=== PATIENT | female | born 2000 | race Caucasian/White ===

== ENCOUNTER 2022-07-21 05:32 | Outpatient (CLI) | payer OTHER ==
[~2022-07-21] VITALS: Ht 162.6 cm; Wt 58.2 kg
[2022-07-21] MEDS ORDERED: CITA10TA12 PO (16:55)
[2022-07-21] MEDS ORDERED: [UNRECOGNIZED DRUG - CODE] PO (16:55)
== END 2022-07-21 17:16 | disposition home or self-care (01) ==
LOC: PREOP 05:32
PROVIDERS: ATTEND Surgery
DX: Z01.818 Encounter for other preprocedural examination (principal)

== ENCOUNTER 2022-07-28 07:52 | Day surgery (SDC) | payer OTHER, MEDICAID ==
[2022-07-28] VITALS (12 sets, daily range): BP systolic 97–132; BP diastolic 53–76
[~2022-07-28] VITALS: Ht 162.6 cm; Wt 58.2 kg
[~2022-07-28 07:52] MED LIST: CITA10TA12 PO; [UNRECOGNIZED DRUG - CODE] PO
[2022-07-28] MEDS ORDERED: ceFAZolin INJECTION 2,000 MG in NS (IVPB) 50 ML IV ONE (08:15)
[2022-07-28] MEDS: LACTATED RINGERS 1,000 ML IV PRN ×2 (08:23→09:51)
[2022-07-28] MEDS ORDERED: BUP/EPI 0.5% 1:200,000 (SENSORCAINE) 30 ML VIAL ONE (08:37)
[2022-07-28] MEDS ORDERED: LIDOCAINE PF 2% 5 ML (XYLOCAINE) VIAL ONE (08:57)
[2022-07-28] MEDS ORDERED: GLYCOPYRROLATE 0.2 MG/ML (ROBINUL) 2 ML VIAL ONE (08:57)
[2022-07-28] MEDS ORDERED: ONDANSETRON 4 MG/2 ML (SDV) Z0FRAN ONE (08:57)
[2022-07-28] MEDS ORDERED: proPOfol 200 MG/20 ML (DIPRIVAN) VIAL IV ONE (08:57)
[2022-07-28] MEDS ORDERED: ROCURONIUM 50 MG/5 ML (ZEMURON) VIAL IV ONE (08:58)
[2022-07-28] MEDS ORDERED: SUCCINYLCHOLINE INJ 20 MG/1 ML 10 ML VIAL ONE (08:58)
[2022-07-28] MEDS ORDERED: MIDAZOLAM 2 MG/2 ML (VERSED) VIAL ONE (08:58)
[2022-07-28] MEDS ORDERED: fentaNYL INJ 100 MCG/2 ML AMP ONE (08:58)
[2022-07-28] MEDS ORDERED: BUP/EPI 0.5% 1:200,000 (SENSORCAINE) 30 ML VIAL INJ ONE (09:50)
--- NOTE | 2022-07-28 10:28 | Anesthesia-General Post-Op ---
General Patient Condition Mental Status/LOC: Same as Preop Cardiovascular: Satisfactory Nausea/Vomiting: Absent Respiratory: Satisfactory Pain: Controlled Complications: Absent Post Op Complications Complications None Follow Up Care/Instructions Patient Instructions None needed. Anesthesia/Patient Condition Patient Condition Patient is doing well, no complaints, stable vital signs, no apparent adverse anesthesia problems. No complications reported per nursing. PURNIMA VELARDE CRNA July 28, 2022 10:28
[2022-07-28] MEDS ORDERED: ONDANSETRON 4 MG/2 ML (SDV) Z0FRAN IVP PRN (10:30)
[2022-07-28] MEDS ORDERED: morphine INJ 10 MG/ML 1ML (SYR OR VIAL) IVP ONE (10:30)
[2022-07-28] MEDS ORDERED: MEPERIDINE (DEMEROL) INJ 50 MG/ML IVP ONE (10:30)
[2022-07-28] MEDS ORDERED: DOCU-143 PO (11:54)
[2022-07-28] MEDS ORDERED: ACHD5005 PO (11:54)
--- NOTE | 2022-07-28 11:55 | Discharge Inst-Simple/Standard ---
Discharge Inst-Standard Discharge Medications New, Converted or Re-Newed RX: Transmitted to Pharmacy Patient Instructions/Follow Up Plan of Care/Instructions/FU: 2 weeks Violeta Activity as Tolerated: No Discharge Diet: Regular Diet Other Inst to Patient Follow up Appt: Make appointment for 2 week. Instructions: No lifting greater than 10 pounds. No strenuous activity. May shower in 24 hours, no tub bath or soaking. Use incentive spirometer at home as directed. No Smoking Skin/Wound Care: Keep area clean and dry. Symptoms to Report: Appetite Changes, Extremity Discoloration, Numbness/Tingling, Swelling Increased, Bleeding Excessive, Eyesight Changes, Pain Increased, Urine Color Change, Constipation(Persistent), Fever over 101 degree F, Pain/Pressure in chest, Urinating Difficulty, Cough Up/Vomit Blood, Heart Beat Irreg/Pounding, Pain/Pressure in jaw, Vaginal Bleeding Increase, Cramps in feet or legs, Lightheadedness, Pain/Pressure in shoulder, Diarrhea(Persistent), Memory Changes Suddenly, Questions/Concerns, Weight gain consecutive days, Dizziness/Fainting, Nausea/Vomiting, Shortness of Breath, Weight gain over 2 pounds If questions or concerns contact your physician Or seek help at emergency department. PRATIK GUEVARA DO July 28, 2022 11:55
--- NOTE | 2022-07-28 23:32 | OPERATIVE REPORT ---
DATE OF SERVICE: 07/28/2022 PREOPERATIVE DIAGNOSIS: Pilonidal cyst. POSTOPERATIVE DIAGNOSIS: Pilonidal cyst. PROCEDURE: Excision of pilonidal cyst, 9 x 2 x 3 cm. SURGEON: Pratik Stanley DO ANESTHESIA: General. ESTIMATED BLOOD LOSS: Minimal. COMPLICATIONS: None. INDICATIONS: The patient is a 22-year-old female with pilonidal cyst. She understands risks and benefits of procedure and wished to proceed. Consent was signed in the chart. DESCRIPTION OF PROCEDURE: The patient was taken to the operating suite where she was prepped and draped in sterile fashion in prone position. Timeout was performed. Local anesthetic was infiltrated around the pilonidal area. A #15 blade scalpel was used to make an elliptical incision around the area and cautery was used to dissect down through the skin and subcutaneous tissues all the way down to the cervical fascia, which this area was excised. No other tracts or pathology noted. Hemostasis was achieved. The wound was then irrigated with copious amounts of irrigation and suction. Subcutaneous tissues then reapproximated using 0 Vicryl. Skin was then closed using 2-0 Prolene in vertical mattress and simple interrupted fashion. The patient tolerated the procedure well without any complications and taken to recovery room in stable condition. Job ID: [id number] DocumentID: [id number] Dictated Date: 07/28/2022 15:53:27 Front Office Assistant Date: 07/28/2022 23:30:00 Dictated By: PRATIK STANLEY DO
== END 2022-07-28 12:43 | disposition home or self-care (01) ==
LOC: SDC 07:52
PROVIDERS: ATTEND Surgery
DX: L05.01 Pilonidal cyst with abscess (principal)
CPT/HCPCS: 84703; 87081

== ENCOUNTER 2022-12-22 06:57 | Day surgery (SDC) | payer MEDICAID, OTHER ==
[2022-12-22] VITALS (12 sets, daily range): BP systolic 90–115; BP diastolic 48–79
[~2022-12-22] VITALS: Ht 162 cm; Wt 59.4 kg
[~2022-12-22 06:57] MED LIST changes: +ACHD5005 PO; +DOCU-143 PO
--- NOTE | 2022-12-22 07:14 | Progress Note-Pre Operative ---
Pre-Operative Progress Note Date H&P Reviewed: Dec 22, 2022 Time H&P Reviewed: 07:13 History & Physical: H&P Reviewed, Patient Examed, No changes noted Pre-Operative Diagnosis: recurrent pilonidal cyst PRATIK GUEVARA DO Dec 22, 2022 07:14
[2022-12-22] MEDS ORDERED: ceFAZolin INJECTION 2,000 MG ONE (07:22)
[2022-12-22] MEDS ORDERED: NS (IVPB) 50 ML 50 ML ONE (07:22)
[2022-12-22] MEDS: LACTATED RINGERS 1,000 ML 1,000 ML IV PRN ×2 (07:26→08:53)
[2022-12-22] MEDS ORDERED: ceFAZolin INJECTION 2,000 MG in NS (IVPB) 50 ML 50 ML IV ONE (07:30)
[2022-12-22] MEDS ORDERED: LIDOCAINE/EPI 1%-1:200,000 (XYLOCAINE) 30 ML VIAL ONE (07:32)
[2022-12-22] MEDS ORDERED: SEVOFLURANE (ULTANE) 15 ML INHAL SOLN ONE (07:33)
[2022-12-22] MEDS ORDERED: dexAMETHasone INJ 10 MG/ML 1 ML VIAL ONE (07:33)
[2022-12-22] MEDS ORDERED: MIDAZOLAM INJ 2 MG/2 ML VIAL ONE (07:33)
[2022-12-22] MEDS ORDERED: fentaNYL INJECTION 100 MCG/2 ML VIAL ONE ×2 (07:33→08:31)
[2022-12-22] MEDS ORDERED: proPOfol INJECTION 200 MG/20 ML VIAL IV ONE (07:33)
[2022-12-22] MEDS ORDERED: ONDANSETRON INJECTION 4 MG/2 ML (SDV) ONE (07:33)
[2022-12-22] MEDS ORDERED: ROCURONIUM 50 MG/5 ML VIAL IV ONE (07:33)
[2022-12-22] MEDS ORDERED: LIDOCAINE PF 2% 5 ML VIAL ONE (07:33)
[2022-12-22] MEDS ORDERED: HYPOCHLOROUS ACID/NaCl WOUND SOLN 250 ML IR PRN (08:30)
--- NOTE | 2022-12-22 08:51 | Anesthesia-General Post-Op ---
General Patient Condition Mental Status/LOC: Same as Preop Cardiovascular: Satisfactory Nausea/Vomiting: Absent Respiratory: Satisfactory Pain: Controlled Complications: Absent Post Op Complications Complications None Follow Up Care/Instructions Patient Instructions None needed. Anesthesia/Patient Condition Patient Condition Patient is doing well, no complaints, stable vital signs, no apparent adverse anesthesia problems. No complications reported per nursing. PURNIMA VELARDE CRNA Dec 22, 2022 08:51
--- NOTE | 2022-12-22 08:58 | Progress Note-Post Operative ---
Post-Operative Progess Note Surgeon (s)/Tax Processor (s) Surgeon PRATIK GUEVARA DO Tax Processor: na Pre-Operative Diagnosis recurrent pilonidal cyst Post-Operative Diagnosis same Procedure & Operative Findings Date of Procedure 12/22/22 Procedure Performed/Findings excision of recurrent pilonidal cyst Anesthesia Type general Estimated Blood Loss Estimated blood loss (mL): minimal Specimens/Packing Specimens Removed pilonidal cyst PRATIK GUEVARA DO Dec 22, 2022 08:58
[2022-12-22] MEDS ORDERED: ONDANSETRON INJECTION 4 MG/2 ML (SDV) IVP PRN (09:00)
[2022-12-22] MEDS ORDERED: morphine INJ 10 MG/ML 1ML (SYR OR VIAL) IVP ONE (09:00)
[2022-12-22] MEDS ORDERED: ACHD5005 PO (09:01)
[2022-12-22] MEDS ORDERED: DOCU-143 PO (09:01)
--- NOTE | 2022-12-22 09:07 | Discharge Inst-Simple/Standard ---
Discharge Inst-Standard Discharge Medications New, Converted or Re-Newed RX: Transmitted to Pharmacy Patient Instructions/Follow Up Plan of Care/Instructions/FU: 2 weeks jessica Stanley office tomorrow. Activity as Tolerated: No Discharge Diet: Regular Diet Other Inst to Patient Follow up Appt: Make appointment for 2 week. Instructions: No lifting greater than 10 pounds. No strenuous activity. May shower in 24 hours, no tub bath or soaking. Use incentive spirometer at home as directed. No Smoking Skin/Wound Care: Daily irrigation and wound packing. Symptoms to Report: Appetite Changes, Extremity Discoloration, Numbness/Tingling, Swelling Increased, Bleeding Excessive, Eyesight Changes, Pain Increased, Urine Color Change, Constipation(Persistent), Fever over 101 degree F, Pain/Pressure in chest, Urinating Difficulty, Cough Up/Vomit Blood, Heart Beat Irreg/Pounding, Pain/Pressure in jaw, Vaginal Bleeding Increase, Cramps in feet or legs, Lightheadedness, Pain/Pressure in shoulder, Diarrhea(Persistent), Memory Changes Suddenly, Questions/Concerns, Weight gain consecutive days, Dizziness/Fainting, Nausea/Vomiting, Shortness of Breath, Weight gain over 2 pounds If questions or concerns contact your physician Or seek help at emergency department. PRATIK STANLEY DO Dec 22, 2022 09:07
[2022-12-22] MEDS ORDERED: HYDROmorphone INJECTION 2 MG/ML VIAL ONE (09:24)
[2022-12-22] MEDS ORDERED: PROMETHAZINE INJ 25 MG/ML VIAL ONE (09:24)
[2022-12-22] MEDS ORDERED: HYDROcodone/ACETAMINOPHEN 7.5 MG/325 MG TABLET PO ONE ×2 (10:00→10:03)
--- NOTE | 2022-12-24 06:20 | OPERATIVE REPORT ---
DATE OF SERVICE: 12/22/2022 PREOPERATIVE DIAGNOSIS: Recurrent pilonidal cyst. POSTOPERATIVE DIAGNOSIS: Recurrent pilonidal cyst. PROCEDURE: Excision of recurrent pilonidal cyst 11 x 5 x 3.5 cm. SURGEON: Pratik Stanley DO ANESTHESIA: General. ESTIMATED BLOOD LOSS: Minimal. COMPLICATIONS: None. INDICATIONS: The patient is a 22-year-old female with recurrent pilonidal cyst. She understands risks and benefits of procedure and wished to proceed. Consent was signed in chart. DESCRIPTION OF PROCEDURE: The patient was taken to the operating suite. She was prepped and draped in sterile fashion in the prone position. A timeout was performed. Local anesthetic was infiltrated. An #15 blade scalpel was used to make a skin incision around the visible pathology of the recurrent pilonidal cyst. Cautery was used to dissect down through the subcutaneous tissues all the way down to the presacral fascia. Skin and subcutaneous tissue was then removed all the way down to the coccyx as well. Overall, dimensions were 11 x 5 x 3.5 cm. The wound was then irrigated with copious amounts of irrigation, achieved hemostasis. No other visible pathology present. The wound was then packed with Kerlix with Vashe in wet-to-dry fashion. The patient tolerated the procedure well. Sterile bandage was applied. The patient tolerated the procedure well without any complications. She was taken to recovery room in stable condition. Job ID: [id number] DocumentID: [id number] Dictated Date: 12/23/2022 22:41:25 Pricing/Signage Team Member Date: 12/24/2022 06:19:00 Dictated By: PRATIK STANLEY DO
== END 2022-12-22 11:05 | disposition home or self-care (01) ==
LOC: SDC 06:57
PROVIDERS: ATTEND Surgery
DX: L05.01 Pilonidal cyst with abscess (principal); L90.5 Scar conditions and fibrosis of skin
CPT/HCPCS: 84703; 87081

== ENCOUNTER 2022-12-25 11:00 | Outpatient (RCR) | payer MEDICAID ==
[2022-12-23 10:08] VITALS: BP 88/63
[2022-12-24 12:30] VITALS: BP 0/0
[~2022-12-25] VITALS: Wt 59.4 kg
[2022-12-25 11:50] VITALS: BP 0/0
== END 2023-01-17 | disposition home or self-care (01) ==
LOC: SDC 11:00
PROVIDERS: ATTEND Surgery
DX: Z48.01 Encounter for change or removal of surgical wound dressing (principal)
CPT/HCPCS: 99212

== ENCOUNTER → 2022-12-27 | Outpatient (CLI) | payer MEDICAID | LOC: WOUNDCARE 09:45 | PROVIDERS: ATTEND Family Medicine | DX: T81.31XA Disruption of external operation (surgical) wound, not elsewhere classified, initial encounter (principal); I96 Gangrene, not elsewhere classified; L05.02 Pilonidal sinus with abscess; A49.9 Bacterial infection, unspecified | CPT/HCPCS: 87070; 87205; 99214 ==